=== PATIENT | female | born 1990 | race Caucasian/White ===

== ENCOUNTER 2021-06-17 11:15 | Emergency (ER) | payer OTHER ==
[2021-06-17 12:02] LABS: BASOPHIL 0.5 % (0-2); EOSINOPHIL 0.7 % (0-5); HCT 44.4 % (37.0-47.0); LYMPHOCYTE 19.6 % (15-48); MCH 29.2 pg (25.0-31.0); MCHC 33.8 g/dL (32.0-36.0); MCV 86.5 fL (78.0-100.0); MONOCYTE 5.2 % (0-12); MPV 8.7 fL (6.0-9.5); NEUTROPHIL 73.7 % (41-80); NRBC 0; PLT 357 K/uL (150-400); RBC 5.13 M/uL (4.20-5.40); RDW 12.2 % (11.5-14.0); WBC 9.6 K/uL (4.0-10.5)
[2021-06-17 12:23] LABS: INR 0.99 (0.9-1.2); PROTHROMBIN TIME 12.5 SECONDS (11.8-13.4)
[2021-06-17 12:27] LABS: ALBUMIN 3.8 g/dL (3.4-5.0); BILIRUBIN - TOTAL 0.4 mg/dL (0.2-1.0); CREATININE 0.7 mg/dL (0.51-0.95); GLOBULIN (CALCULATION) 4.2 g/dL; POTASSIUM 3.5 mmol/L (3.5-5.1)
== END 2021-06-17 14:34 | disposition home or self-care (01) ==
LOC: FER 11:15
PROVIDERS: Emergency Medicine
DX: G43.909 Migraine, unspecified, not intractable, without status migrainosus (principal); Z28.310 Unvaccinated for COVID-19
CPT/HCPCS: 36415; 70450; 71046; 80053; 82550; 83874; 84484; 85025; 85610; 85730; 93005; J1200; J1885; J2765; J3490